=== PATIENT | male | born 1980 | race Two or more races ===

== ENCOUNTER 2022-10-01 11:13 | Outpatient (CLI) | payer OTHER | END 2022-10-01 11:18 | disposition home or self-care (01) | LOC: SONOGRAMA 11:13 | PROVIDERS: ATTEND Pathology Anatomic Pathology & Clinical Pathology | DX: R59.0 Localized enlarged lymph nodes (principal) ==

== ENCOUNTER 2024-03-08 07:19 | Outpatient (CLI) | payer OTHER | END 2024-03-08 07:44 | disposition home or self-care (01) | LOC: SONOGRAMA 07:19 | DX: N45.3 Epididymo-orchitis (principal) ==

== ENCOUNTER 2024-03-21 07:34 | Outpatient (CLI) | payer OTHER | END 2024-03-21 08:01 | disposition home or self-care (01) | LOC: TOM 07:34 → EDBD 07:34 → TOM 08:01 | DX: M99.01 Segmental and somatic dysfunction of cervical region (principal); J34.2 Deviated nasal septum; J32.4 Chronic pansinusitis | CPT/HCPCS: 72141 ==